=== PATIENT | female | born 1975 | race Caucasian/White ===

== ENCOUNTER 2024-05-08 06:50 | Day surgery (SDC) | payer MEDICAID ==
[2024-05-08] MEDS ORDERED: Propofol 200 MG/20 ML SDV IV ONE (06:51)
[2024-05-08] MEDS ORDERED: Lidocaine 2% 100 MG/5 ML Syringe IVPUSH ONE (06:51)
[2024-05-08] MEDS ORDERED: Midazolam 1 MG/ML 2 ML SDV IV ONE (06:51)
[2024-05-08] MEDS ORDERED: Sodium Chloride 0.9% 10 ML Syringe FLUSH PRN (07:00)
[2024-05-08] MEDS: Lactated Ringers 1,000 ML IV SCH (07:54)
[2024-05-08] MEDS: Simethicone Drops 40 MG/0.6 ML 30 ML Bottle ONE (08:37)
== END 2024-05-08 09:45 | disposition home or self-care (01) ==
LOC: FB.SDS 06:50
PROVIDERS: ATTEND Surgery
DX: Z12.11 Encounter for screening for malignant neoplasm of colon (principal); Z79.899 Other long term (current) drug therapy
CPT/HCPCS: 00812; A9270-GY; J2250; J2704; J7120